=== PATIENT | female | born 1940 | race Caucasian/White ===

== ENCOUNTER 2019-07-10 12:10 | Emergency (ER) | payer OTHER ==
[~2019-07-10] VITALS: Ht 152.4 cm; Wt 69.9 kg
[~2019-07-10 12:10] MED LIST: LOT20 PO
[2019-07-10 12:28] VITALS: Ht 152.4 cm; Wt 69.9 kg
[2019-07-10 16:34] VITALS: BP 156/97
== END 2019-07-10 16:34 | disposition home or self-care (01) ==
LOC: ED 12:10
DX: N81.10 Cystocele, unspecified (principal); I10 Essential (primary) hypertension
CPT/HCPCS: Q0092